=== PATIENT | female | born 2000 | race Caucasian/White ===

== ENCOUNTER 2021-12-09 17:20 | Emergency (ER) | payer BC, SELFPAY ==
--- NOTE | 2021-12-09 17:22 | ED.NAVMDI ---
HPI - Nausea/Vomiting/Diarrhea General Chief complaint: Nausea/Vomiting/Diarrhea Stated complaint: nausea and diahrrea Time Seen by Provider: 12/09/21 17:22 Source: patient Mode of arrival: ambulatory Limitations: no limitations History of Present Illness HPI Narrative: Ms. Pierson is a 21-year-old female patient presenting to the clinic today with complaints of nausea and diarrhea times 1 day. She reports she has vomited once and had 2 episodes of diarrhea. She denies any fever or chills. 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 She reports some abdominal cramping. MD elicited complaint: nausea, diarrhea and abdominal pain (Abdominal cramping) Related Data Allergies Allergy/AdvReac Type Severity Reaction Status Date / Time No Known Allergies Allergy Verified 12/09/21 17:44 Review of Systems Review of Systems: Pertinent positives per HPI. Patient denies any fever, chills, rash, headache, visual changes, dizziness, cough, runny nose, sore throat, shortness of breath, chest pain, palpitations, vomiting, constipation, or any urinary issues. PMFSH Comments At the time of my signature, I reviewed and agree with the nursing past medical, surgical, social, and family history. There is no relevant family history pertinent to the patient complaint. Exam Narrative: General: Well-developed, well nourished, in no apparent distress. Head: Normocephalic, atraumatic. Cardio: Regular rate and rhythm, s1 and s2 normal, no murmur appreciated. Resp: Clear to auscultation bilaterally, no rhonchi, rales, wheezing or rubs. Abdomen: Soft, pliable, bowel sounds present in all quadrants, generalized tenderness to palpation, no organomegly, no CVAT tenderness. Course Course Emergency Course: Portions of this record may have been created with voice recognition software. Level of Care: Express Care Visit Vital Signs Vital signs: Vital Signs Temperature 37.0 C 12/09/21 17:41 Pulse Rate 95 12/09/21 17:41 Respiratory Rate 14 12/09/21 17:41 Blood Pressure 124/64 12/09/21 17:41 Pulse Oximetry 98 12/09/21 17:41 Temperature 37.0 C 12/09/21 17:41 Pulse Rate 95 12/09/21 17:41 Respiratory Rate 14 12/09/21 17:41 Blood Pressure 124/64 12/09/21 17:41 Pulse Oximetry 98 12/09/21 17:41 Vital signs reviewed MDM - Nausea/Vomiting/Diarrhea MDM Narrative Medical decision making narrative: At the time of visit patient is resting comfortably in the exam chair. She denies any fever or chills. States that she just started having nausea, vomiting, and diarrhea that began yesterday. She reports that she is currently nauseated. Zofran 4 mg ODT given in the clinic today. Supportive measures were discussed and patient voiced understanding of discharge instructions. Differential Diagnosis Differential diagnosis: Likely traveler's diarrhea, food poisoning, gastroenteritis and dehydration Discharge Plan Discharge Clinical Impression: Gastroenteritis Patient Disposition: Home, Self-Care Condition: Stable Instructions: Gastroenteritis (ED) Additional Instructions: Take prescription medications only as prescribed Zofran as prescribed Increase fluids and stay well hydrated Tylenol/motrin for pain/fever Flonase and OTC antihistamines as directed Vicks vapor rub to open sinuses Sinus rinses for congestion Cepacol spray, cough drops, throat lozenges, warm tea with honey/lemon, gargle salt water to soothe throat BRAT diet for diarrhea Clear liquids x 24 hours then advance as tolerated for nausea/vomiting May return to the clinic if symptoms worsen Go to the ED if you develop dehydration, weakness, lethargy, shortness of breath, or chest pain. Follow up with your PCP in 3-5 days if symptoms persist. Prescriptions: New ondansetron 4 mg tablet,disintegrating 4 mg PO Q6H PRN (Reason: nausea and vomitin
[2021-12-09 17:41] VITALS: BP 124/64; PULSE 95; RESP 14; TEMP 37; O2SAT 98
[2021-12-09] MEDS: ONDANSETRON HCL ODT 4 MG TABLET SUBLINGUAL (17:55)
== END 2021-12-09 18:05 | disposition home or self-care (01) ==
LOC: EXPBETH 17:26
PROVIDERS: Emergency Provider Nurse Practitioner Family
DX: K52.9 Noninfective gastroenteritis and colitis, unspecified (principal)
CPT/HCPCS: 99213; A9270; G0463